=== PATIENT | male | born 1960 | race Caucasian/White ===

== ENCOUNTER 2021-03-31 11:48 | Outpatient (CLI) | payer BC, SELFPAY ==
[2021-03-31 16:20] LABS: INR 0.9; Prothrombin Time 12.5 Seconds (11.1-14.7)
[2021-03-31 16:21] LABS: Partial Thromboplastin Time 30.5 SECONDS (22.3-36.8)
== END 2021-03-31 11:49 | disposition home or self-care (01) ==
PROVIDERS: PCP Pediatrics; Visit Provider Urology
DX: N20.0 Calculus of kidney (principal); Z01.818 Encounter for other preprocedural examination
CPT/HCPCS: 36415; 85610; 85730; 87086

== ENCOUNTER 2021-04-07 00:36 | Day surgery (SDC) | payer BC, SELFPAY ==
--- NOTE | 2021-03-30 07:34 | P.HP_ITS ---
History of Present Illness History of Present Illness Consent: Risks, benefits, and alternatives have been discussed and questions answered. Patient agrees to proceed with procedure. Chief complaint: kidney stones, bph Narrative: Patrick Severino is a 60 year old male well known to me with a long history of urolithiasis. He was presented after having spontaneously passed several stones. CT imaging demonstrated a 7 mm right renal calculus and up to 7 small bladder calculi less than 1 cm. After discussion of options has elected for simultaneous right ESWL and cystoscopy with laser lithotripsy and extraction of bladder stones. He is aware the risk including, but not limited to, adverse cardiopulmonary events, persistent renal stones and potential for recurrent bladder stones. Review of Systems Cardiovascular: Cardiovascular: Denies chest pain, Denies lightheadedness, Denies palpitations and Denies dyspnea Respiratory: Respiratory: Denies dyspnea Gastrointestinal: Gastrointestinal: Denies diarrhea, Denies nausea and Denies vomiting Genitourinary: Genitourinary: Denies hematuria and Denies dysuria Endocrine: Endocrine: Denies palpitations Meds Home Medications and Allergies Allergies Allergy/AdvReac Type Severity Reaction Status Date / Time No Known Allergies Allergy Unverified 11/07/18 07:41 Exam Const: General: no acute distress Resp: Effort & Inspection: normal respiratory effort GI: Inspection: non-distended GI Palp: No abdominal tenderness and No Guarding due to palpation present (GI) Auscultation: normal bowel sounds Assessment and Plan Assessment and plan (1) Bladder stones: Code(s): N21.0 - Calculus in bladder Status: Acute (2) Right renal stone: Code(s): N20.0 - Calculus of kidney Status: Acute Assessment and Plan: * Right ESWL, cystoscopy with laser lithotripsy and bladder stone extraction
[2021-03-31 11:05] VITALS: BMI 30.9
--- NOTE | 2021-03-31 11:15 | PC.NURSE ---
Report to the Outpatient Waiting Room, entrance under the green pavilion located off [facility], at time 6:00 on date 04/07/21. OR Time: 7:30. - You will be asked a series of questions to screen for COVID 19 for your protection. - A mask is required within the hospital. - No visitors are allowed at this time. Preoperative COVID Testing Requirements: No COVID Test needed if: (proof is required; if not received patient will have Rapid Test prior to entry) - Patient has received COVID Vaccine at least 14 days prior to procedure date or - Patient has positive COVID test result within last 90 days of surgery date. COVID Test needed if above criteria is not met Patients may have clear liquids (water, carbonated beverages, clear teas, apple juice) until 3 hours prior to surgery (4:30) with a maximum of 20 ounces. - No food from midnight until time of surgery Take the following medications with a SIP of water the morning of surgery: ZOLOFT Medications to discontinue per physician: VITAMINS/SUPPLEMENTS Date to take last dose: 04/03/21 Please no make-up, nail citizen of [place], hairspray, perfume, deodorant, or body powder the day of surgery. No jewelry (including any body piercings) or valuables the day of surgery, leave them at home. Please take a shower or bath the night before, or the morning of, surgery with an antibacterial soap. Wear comfortable, loose fitting clothing. - Jewelry must be removed prior to entering the operating room. Rings and piercings that are not removed may be cut off. - The hospital will not accept responsibility for valuables. - Please leave all valuables, including medications, at home the day of surgery. If you are going home after surgery, a licensed mechanic welder truck driver must drive you home. - NO public transportation without another adult. - We recommend that an adult stay with you for 24 hours following discharge. - We also recommend that you do not drive, make important decision, drink alcoholic beverages, or take any drugs that were not prescribed by your health care provider for at least 24 hours after your discharge time. Follow any additional instructions given to you from your surgeon. Telephone instructions given to OWEN CASTELAN and asked if any additional questions and then verbalized understanding. Patient advised to call surgeon office or pre surgery nurse liaison [phone] if any additional questions.
--- NOTE | ~2021-04-07 | XR_ITS ---
EXAMINATION: XR abdomen/kub 1V DATE: 04/07/2021 06:06 INDICATION: Kidney stone. TECHNIQUE: A supine view of the abdomen on 2 radiographs was obtained. COMPARISON: CT abdomen and pelvis 11/08/2018, abdomen radiograph 11/07/2018 FINDINGS: There are no dilated loops of bowel. There is no visible urolithiasis. IMPRESSION: 1. No visible urolithiasis. Reviewed, dictated and finalized at location B. GRAPHY TECHNICIAN IMPRESSION: 1. No visible urolithiasis.
--- NOTE | 2021-04-07 06:31 | WPDHPUPDATE1 ---
History and Physical Update Update Date/Time: 04/07/21 06:31 History and Physical has been reviewed, including an updated exam of the patient. There are NO changes in the patient's condition. Risks, benefits, and alternatives have been discussed and questions answered. Patient agrees to proceed with procedure.
[2021-04-07] MEDS: LACTATED RINGERS 1,000 ML 30 ML IV CONT ×2 (06:46→08:43)
[2021-04-07 06:47] VITALS: BP 139/86; PULSE 98; RESP 16; TEMP 36.5; O2SAT 98
--- NOTE | 2021-04-07 06:57 | WPDANESEPPF ---
Anes - Initial Pre Proc Eval Procedure: Operation Date: 04/07/21 07:30 Proposed Procedures p Cystoscopy, Bladder Stone Extraction, - Levon Connolly MD s Right Extracorporeal Shock Wave Lithotripsy - Levon Connolly MD s Possible Holmium Laser Procedure - Levon Connolly MD Date/Time: 04/07/21 06:57 Surgeon: Levon Connolly MD Pre Op Diagnosis: kidney stones, bph Patient Data Age: 60 Gender: M Height: 1.88 m Weight: 109.3 kg Last Vital Signs Temp 36.5 C 04/07/21 06:47 Pulse 98 04/07/21 06:47 Resp 16 04/07/21 06:47 BP 139/86 04/07/21 06:47 Pulse Ox 98 04/07/21 06:47 Allergies Allergy/AdvReac Type Severity Reaction Status Date / Time No Known Allergies Allergy Unverified 04/07/21 06:14 Home Medications Medication Instructions Recorded Confirmed Type glycopyrrolate 2 mg PO DAILY 03/31/21 04/07/21 History multivitamin 1 tablet PO DAILY 03/31/21 04/07/21 History sertraline 100 mg PO DAILY 03/31/21 04/07/21 History Patient hx anesthesia problems: none Family hx anesthesia problems: none Results Review: All pre-operative results and documents have been reviewed as part of the pre-operative evaluation. [facility] Past Medical History Medical History (Updated 04/07/21 @ 06:57 by Mike Combs MD) Obesity Surgical History Surgical History (Updated 04/07/21 @ 06:57 by Mike Combs MD) H/O lithotripsy H/O vasectomy History of hydrocelectomy Social History Social History Smoking status: Never smoker Alcohol intake: never Substance use: never Substance use type: does not use Living arrangements: with family Spiritual care concerns: No Anes - Eval Final PreProcedure Day of Procedure 04/07/21 06:57 Patient weight: obese Heart: regular rate and rhythm Lungs: clear to auscultation Airway: Mallampati scale class II Neurological: alert and oriented Last oral intake: >/= 8 hours ASA classification: II Emergent: no Anesthetic plan: proceed Anesthesia type and monitoring: general LMA and standard monitoring Results Review: All pre-operative results and documents have been reviewed as part of the pre-operative evaluation. Informed Consent: The patient's anesthetic plan and its attendant risks and benefits were discussed with the patient/family/POA. Questions were solicited and answers provided to the satisfaction of the patient/family/POA.
[2021-04-07] MEDS: ceFAZolin 2 GM/D5W 50 ML 2 GM/50 ML BAG IVPB (07:23)
[2021-04-07] MEDS: LIDOCAINE HCL 2% JELLY 30 ML TUBE 1 APPLIC MUCOUS MEM (07:52)
--- NOTE | 2021-04-07 08:24 | W.PM.PROC2 ---
Procedure Note - Detailed Date of Procedure 04/07/21 Pre-op Diagnosis 1. 6 mm right kidney stones 2. Multiple bladder stones Post-op Diagnosis same Procedure Performed 1. Cystoscopy with bladder stone extraction 2. Right retrograde pyelography and right ureteroscopy 3. Right ESWL 4. Urethral dilatation Surgeon Levon Connolly MD Anesthesia general Description of Procedure Patient is brought to the operative suite where we 1st attempted to localize his right renal stone with the ESWL fluoroscopy unit after the uneventful induction of a general anesthetic. We could not visualize the 6 mm right renal calculus. I therefore positioned him in a dorsal lithotomy position. Cystoscopy revealed a bulbous urethral stricture which was dilated from 16-26 F with Redd sounds. His bladder mucosa was without hyperemia or neoplasm. There were 7 bladder stones each measuring approximately 1 cm. I was able to extract these intact with a 26 F resectoscope and loop. Then placed a 0.035 in glidewire to the right renal pelvis, dilated the distal ureter with an 8 F 10 F dilator and performed right retrograde pyelography and right ureteroscopy to localize his 6 mm right renal calculus in a lower pole calyx. With the aid of retrograde contrast injection treated that with the Dornier ESWL machine. We delivered 2500 shocks at a power setting of 4. Scopes and wires removed he was taken to the recovery room in good condition. Estimated Blood Loss 0 Drains No Packing No Pathology yes Complications No immediate complications Condition stable Disposition PACU
[2021-04-07] MEDS: KETOROLAC 15 MG/ML VIAL (*BKC) IV PUSH (08:38)
[2021-04-07 08:43] VITALS: BP 107/68; PULSE 77; RESP 14; TEMP 36.2; O2SAT 98
[2021-04-07 08:55] VITALS: BP 120/81; PULSE 89; RESP 13; O2SAT 100
[2021-04-07 09:10] VITALS: BP 117/80; PULSE 85; RESP 19; O2SAT 96
[2021-04-07 09:25] VITALS: BP 134/85; PULSE 80; RESP 16
[2021-04-07 09:50] VITALS: BP 128/85; PULSE 79; RESP 16
--- NOTE | 2021-04-07 09:55 | SUR.PHASEII ---
PATIENT ASKED TO HAVE FOLLOW-UP KUB XRAY AT [facility]. DR FREDERICK' OFFICE CALLED; THEY WILL SEND ORDER TO [facility].
== END 2021-04-07 09:56 | disposition home or self-care (01) ==
PROVIDERS: PCP Pediatrics; Visit Provider Urology
PROC: (CPT 52352; principal; 2021-04-07 07:30)
PROC: (CPT 50590; 2021-04-07 07:30)
DX: N20.0 Calculus of kidney (principal); N21.0 Calculus in bladder; N35.912 Unspecified bulbous urethral stricture, male; N40.0 Benign prostatic hyperplasia without lower urinary tract symptoms; E66.9 Obesity, unspecified; Z68.30 Body mass index [BMI] 30.0-30.9, adult
CPT/HCPCS: 50590; 52281; 74018; 82365; 88300; A9270; C1769; C1887; J0171; J0690; J1100; J1885; J2250; J2370; J2405; J2704; J3010; J7120; Q9966

== ENCOUNTER 2021-12-29 01:45 | Day surgery (SDC) | payer BC, SELFPAY ==
[2021-12-28 08:25] VITALS: BMI 30.8
--- NOTE | 2021-12-28 08:29 | PC.NURSE ---
Report to the Outpatient Waiting Room, entrance under the green pavilion located off [facility], at time 0600 on date 12/29/21. OR Time: 0730. Time changes happen often and if your time is changed the preop area will call you the afternoon before. - You and your visitor will be asked to self-screen and do not enter if you have any COVID symptoms. - Only one visitor and NO children visitors are allowed at this time. - The patient visitor is requested to leave or wait in car when not with patient due to restrictions. - A mask is required within the hospital. Patients may have clear liquids (water, carbonated beverages, clear teas, apple juice) until 3 hours prior to surgery with a maximum of 20 ounces. - No food from midnight until time of surgery Take the following medications with a SIP of water the morning of surgery: SERTRALINE, PAIN PILL IF NEEDED Medications to discontinue per physician: VITAMINS/SUPPLEMENTS Date to take last dose: NO MORE UNTIL AFTER SURGERY Please no make-up, nail wolof, hairspray, perfume, deodorant, or body powder the day of surgery. No jewelry (including any body piercings) or valuables the day of surgery, leave them at home. Please take a shower or bath the night before, or the morning of, surgery with an antibacterial soap. Wear comfortable, loose fitting clothing. - Jewelry must be removed prior to entering the operating room. Rings and piercings that are not removed may be cut off. - The hospital will not accept responsibility for valuables. - Please leave all valuables, including medications, at home the day of surgery. If you are going home after surgery, a licensed dump truck driver must drive you home. - NO public transportation without another adult. - We recommend that an adult stay with you for 24 hours following discharge. - We also recommend that you do not drive, make important decision, drink alcoholic beverages, or take any drugs that were not prescribed by your health care provider for at least 24 hours after your discharge time. Follow any additional instructions given to you from your surgeon. If you or anyone in your household have experienced Covid symptoms in the past week, please notify your surgeon or the nurse liaison at the phone number below for possible testing. Telephone instructions given to PT - OWEN CASTELAN and asked if any additional questions and then verbalized understanding. Patient advised to call surgeon office or pre surgery nurse liaison [phone] if any additional questions.
--- NOTE | 2021-12-28 09:17 | P.HP_ITS ---
History of Present Illness History of Present Illness Consent: Risks, benefits, and alternatives have been discussed and questions answered. Patient agrees to proceed with procedure. Chief complaint: right ureteral stone Narrative: Patrick Severino is a 61 year old male With a known history of recurrent urolithiasis who I saw recently where imaging demonstrated just small bilateral nonobstructing renal calculi. Just 2 days ago, however, he developed a severe right renal colic and imaging at [facility] in [facility] shows a 6-8 mm obstructing right proximal ureteral stone. After discussion of options he has elected to proceed with right ESWL. He prefers not to have a stent placed. He is aware the risk of this including, but not limited to, adverse cardiopulmonary events, renal injury, perinephric hematoma and residual fragments that could cause pain or require additional procedures. Review of Systems Cardiovascular: Cardiovascular: Denies chest pain, Denies lightheadedness, Denies palpitations and Denies dyspnea Respiratory: Respiratory: Denies dyspnea Gastrointestinal: Gastrointestinal: Denies diarrhea, Denies nausea and Denies vomiting Genitourinary: Genitourinary: Denies hematuria and Denies dysuria Endocrine: Endocrine: Denies palpitations [facility] Past Medical History Medical History (Updated 12/28/21 @ 09:19 by Levon Connolly MD) Obesity Surgical History Surgical History (Updated 04/07/21 @ 06:57 by Mike Combs MD) H/O lithotripsy H/O vasectomy History of hydrocelectomy Social History Social History Smoking status: Never smoker Alcohol intake: never Substance use: never Substance use type: does not use Living arrangements: with family Spiritual care concerns: No Meds Home Medications and Allergies Home Medications Medication Instructions Recorded Confirmed Type glycopyrrolate 2 mg tablet 2 mg PO DAILY 03/31/21 12/28/21 History sertraline 100 mg tablet 100 mg PO DAILY 03/31/21 12/28/21 History calcium carbonate 500 mg calcium 500 mg PO DAILY 12/28/21 12/28/21 History (1,250 mg) tablet loratadine 10 mg tablet (Claritin) 10 mg PO DAILY 12/28/21 12/28/21 History omega 5-xba-kpk-fish oil 1,000 mg 1 cap PO DAILY 12/28/21 12/28/21 History (120 mg-180 mg) capsule (Fish Oil) ondansetron HCl 4 mg tablet 4 mg PO PRN PRN Nausea 12/28/21 12/28/21 History oxycodone-acetaminophen 5 mg-325 1 tablet PO PRN PRN Pain 12/28/21 12/28/21 History mg tablet Allergies Allergy/AdvReac Type Severity Reaction Status Date / Time No Known Allergies Allergy Unverified 12/28/21 08:23 Exam Const: General: no acute distress Resp: Effort & Inspection: normal respiratory effort GI: Inspection: non-distended GI Palp: No abdominal tenderness and No Guarding due to palpation present (GI) Auscultation: normal bowel sounds Assessment and Plan Assessment and plan (1) Right ureteral stone: Code(s): N20.1 - Calculus of ureter Status: Acute
[2021-12-29] VITALS (7 sets, daily range): BP systolic 90–132; BP diastolic 65–86; PULSE 66–91; RESP 12–17; TEMP 36.3–36.6; O2SAT 95–97
--- NOTE | ~2021-12-29 | XR_ITS ---
EXAMINATION: XR abdomen/kub 1V DATE: 12/29/2021 06:04 INDICATION: Kidney stone. TECHNIQUE: A supine view of the abdomen on 2 radiographs was obtained. COMPARISON: CT abdomen and pelvis 11/08/2018, radiographs 04/07/2021 FINDINGS: There are no dilated loops of bowel. There is no visible urolithiasis. IMPRESSION: 1. No visible urolithiasis. Reviewed, dictated and finalized at location D. IMPRESSION: 1. No visible urolithiasis.
[2021-12-29] MEDS: LACTATED RINGERS 1,000 ML 30 ML IV CONT (06:30)
[2021-12-29 06:50] LABS: INR 1.1; Prothrombin Time 13.6 Seconds (11.1-14.7)
[2021-12-29 06:51] LABS: Partial Thromboplastin Time 36.8 SECONDS (22.3-36.8)
--- NOTE | 2021-12-29 06:55 | WPDHPUPDATE1 ---
History and Physical Update Update Date/Time: 12/29/21 06:55 History and Physical has been reviewed, including an updated exam of the patient. There are NO changes in the patient's condition. Risks, benefits, and alternatives have been discussed and questions answered. Patient agrees to proceed with procedure.
--- NOTE | 2021-12-29 07:02 | P.PNAN_ITS ---
Anes - Initial Pre Proc Eval Procedure: Operation Date: 12/29/21 07:30 Proposed Procedures p Right Ureteral Extracorporeal Shock Wave Lithotripsy - Levon Connolly MD Date/Time: 12/29/21 07:02 Surgeon: Levon Connolly MD Pre Op Diagnosis: right ureteral stone Patient Data Age: 61 Gender: M Height: 1.88 m Weight: 108.86 kg Allergies Allergy/AdvReac Type Severity Reaction Status Date / Time No Known Allergies Allergy Unverified 12/28/21 08:23 Home Medications Medication Instructions Recorded Confirmed Type glycopyrrolate 2 mg tablet 2 mg PO DAILY 03/31/21 12/28/21 History sertraline 100 mg tablet 100 mg PO DAILY 03/31/21 12/28/21 History calcium carbonate 500 mg calcium 500 mg PO DAILY 12/28/21 12/28/21 History (1,250 mg) tablet loratadine 10 mg tablet (Claritin) 10 mg PO DAILY 12/28/21 12/28/21 History omega 3-enm-xff-fish oil 1,000 mg 1 cap PO DAILY 12/28/21 12/28/21 History (120 mg-180 mg) capsule (Fish Oil) ondansetron HCl 4 mg tablet 4 mg PO PRN PRN Nausea 12/28/21 12/28/21 History oxycodone-acetaminophen 5 mg-325 1 tablet PO PRN PRN Pain 12/28/21 12/28/21 History mg tablet Laboratory Tests 12/29/21 06:25 PT 13.6 Seconds Seconds (11.1-14.7) INR 1.1 APTT 36.8 SECONDS SECONDS (22.3-36.8) Patient hx anesthesia problems: none Family hx anesthesia problems: none Results Review: All pre-operative results and documents have been reviewed as part of the pre- operative evaluation. [facility] Past Medical History Medical History Anxiety Obesity Surgical History Surgical History H/O lithotripsy H/O vasectomy History of hydrocelectomy Social History Social History Smoking status: Never smoker Alcohol intake: never Substance use: never Substance use type: does not use Living arrangements: with family Spiritual care concerns: No Anes - Eval Final PreProcedure Day of Procedure 12/29/21 07:02 Patient weight: obese Heart: regular rate and rhythm Lungs: clear to auscultation Airway: Mallampati scale class II Neurological: alert and oriented Last oral intake: >/= 8 hours ASA classification: II Emergent: no Anesthetic plan: proceed Anesthesia type and monitoring: general LMA and standard monitoring Results Review: All pre-operative results and documents have been reviewed as part of the pre- operative evaluation. Informed Consent: The patient's anesthetic plan and its attendant risks and benefits were discussed with the patient/family/POA. Questions were solicited and answers provided to the satisfaction of the patient/family/POA.
[2021-12-29] MEDS: ceFAZolin 2 GM/D5W 50 ML 2 GM/50 ML BAG IVPB (07:26)
--- NOTE | 2021-12-29 07:51 | W.PM.PROC2 ---
Procedure Note - Detailed Date of Procedure 12/29/21 Pre-op Diagnosis Right ureteral stone Post-op Diagnosis Same Procedure Performed Right ureteral ESWL Surgeon Levon Connolly MD Description of Procedure The patient was brought to the operative suite where he was placed in the supine position on the Dornier lithotripsy table. The focal point of the lithotripter was placed at a 10x6mm right mid-ureteral calculus. A total of 3000 shocks were delivered at a power setting of 5. There appeared to be good fragmentation of the stone. The patient tolerated the procedure well and was taken to the recovery room in good condition. Drains No Packing No Pathology None sent Condition Stable Disposition PACU
[2021-12-29] MEDS: KETOROLAC 30 MG/ML VIAL (*BKC) IV PUSH (08:10)
== END 2021-12-29 09:45 | disposition home or self-care (01) ==
PROVIDERS: PCP Pediatrics; Visit Provider Urology
PROC: (CPT 50590; principal; 2021-12-29 07:30)
DX: N20.1 Calculus of ureter (principal); E66.9 Obesity, unspecified; Z68.31 Body mass index [BMI] 31.0-31.9, adult
CPT/HCPCS: 50590; 36415; 74018; 85610; 85730; J0690; J1885; J2250; J2405; J2704; J3010; J7120

== ENCOUNTER 2022-01-12 14:23 | Outpatient (CLI) | payer BC, SELFPAY ==
--- NOTE | ~2022-01-12 | XR_ITS ---
XR abdomen/kub 1V 01/12/2022 14:47 INDICATION: Bilateral renal stones TECHNIQUE: KUB COMPARISON: 12/29/2021 FINDINGS: Bowel gas pattern is normal. Moderate colonic fecal loading. There is no evidence of free a ir, mass, organomegaly, ascites or obstruction. No abnormal calculi are seen. The bones appear inta ct. IMPRESSION: 1: No acute abdominal abnormality identified. Reviewed, dictated and finalized at location A.
== END 2022-01-12 14:24 | disposition home or self-care (01) ==
LOC: ANHIMG 14:25
PROVIDERS: PCP Pediatrics; Visit Provider Urology
DX: N20.0 Calculus of kidney (principal)
CPT/HCPCS: 74018

== ENCOUNTER 2024-03-12 00:37 | Day surgery (SDC) | payer BC, SELFPAY ==
[2024-03-12] VITALS (8 sets, daily range): BP systolic 121–142; BP diastolic 77–88; PULSE 67–77; RESP 14–18; TEMP 36.1; O2SAT 94–100; BMI 30.6
--- NOTE | ~2024-03-12 | XR_ITS ---
EXAMINATION: XR fluoroscopy no charge DATE: 03/12/2024 14:55 INDICATION: Right ureteral stone. TECHNIQUE: 4 intraoperative fluoroscopic views of the abdomen and pelvis were obtained. I was not pre sent. Fluoroscopy exposure time was 69 seconds. COMPARISON: None. FINDINGS: There is a wire in the right ureter. There is no visible urolithiasis. IMPRESSION: 1. No visible urolithiasis. Reviewed, dictated and finalized at location A. [facility] IMPRESSION: 1. No visible urolithiasis.
--- NOTE | 2024-03-12 06:08 | WPDHPUPDATE1 ---
History and Physical Update Update Date/Time: 03/12/24 06:08 History and Physical has been reviewed, including an updated exam of the patient. There are NO changes in the patient's condition. Risks, benefits, and alternatives have been discussed and questions answered. Patient agrees to proceed with procedure.
--- NOTE | 2024-03-12 08:37 | PC.NURSE ---
Report to the Outpatient Waiting Room, entrance under the green pavilion located off [facility], at time _230pm_ on date _[id number]_. Planned Procedure Time: _430pm_.? Time changes happen often and if your time is changed the preop area will call you the afternoon before. - You and your visitor will be asked to self-screen and do not enter if you have any COVID symptoms. Please call surgeon if you need to reschedule. - A mask is optional within the hospital at this time. Patients may have clear liquids (water, carbonated beverages, clear teas, apple juice) until 3 hours prior to surgery with a maximum of 20 ounces. - No food from midnight until time of surgery and no smoking. This includes no chewing gum, candy or mints. Take only the following medications with a SIP of water on the morning of surgery: ____Sertraline and if needed Zofran or Oxycodone DO NOT STOP ANY OF YOUR OTHER PRESCRIPTION MEDICATIONS PRIOR TO SURGERY EXCEPT THE FOLLOWING Medications to discontinue per physician ___Hold all other medications until after surgery.___ Date to take last dose Please no make-up, nail kazakh, hairspray, perfume, deodorant, or body powder the day of surgery.? No jewelry (including any body piercings) or valuables the day of surgery, leave them at home.? Please take a shower or bath the night before, or the morning of, surgery with an antibacterial soap.? Wear comfortable, loose fitting clothing.? - Jewelry must be removed prior to entering the operating room.? Rings and piercings that are not removed may be cut off. - The hospital will not accept responsibility for valuables.? - Please leave all valuables, including medications, at home the day of surgery. If you are going home after surgery, a licensed route sales driver must drive you home.? - NO public transportation without another adult if you receive anesthesia. - We recommend that an adult stay with you for 24 hours following discharge. - We also recommend that you do not drive, make important decision, drink alcoholic beverages, or take any drugs that were not prescribed by your health care provider for at least 24 hours after your discharge time. Follow any additional instructions given to you from your surgeon. Telephone instructions given to _Eliazary__and asked if any additional questions and then verbalized understanding. Patient advised to call surgeon office or pre surgery nurse liaison [phone] if any additional questions.
--- NOTE | 2024-03-12 12:28 | ECG_ITS ---
Test Date: 2024-03-12 12:46:15 Measurements Intervals [place] Rate: 72 P: 40 OR: 171 QRS: 20 QRSD: 94 T: 44 QT: 378 QTc: 416 Interpretive Statements SINUS RHYTHM POSSIBLE ANTERIOR MYOCARDIAL INFARCTION , OF INDETERMINATE AGE [30 ms Q WAVE IN V3/V4, OR R < 0.2 mV IN V4] No previous ECG available for comparison Electronically Signed On 03-13-2024 11:56:02 [employer] by Chapis England M.D.
[2024-03-12] MEDS: LACTATED RINGERS 1,000 ML 30 ML IV CONT (13:00)
--- NOTE | 2024-03-12 14:04 | WPDANESEPPF ---
Anes - Initial Pre Proc Eval Procedure: Operation Date: 03/12/24 16:30 Proposed Procedures p Cystoscopy, Right Ureteroscopy, Right Retrograde Pyelogram, Right Stone Extraction, Right Stent Placement, Possible Holmium Laser - Levon Connolly MD Date/Time: 03/12/24 14:04 Surgeon: Levon Connolly MD Pre Op Diagnosis: right kidney stones, ureteral Patient Data Age: 63 Gender: M Height: 1.88 m Weight: 108.2 kg Allergies Allergy/AdvReac Type Severity Reaction Status Date / Time No Known Allergies Allergy Verified 03/12/24 13:47 Home Medications ?Medication ?Instructions ?Recorded ?Confirmed ?Type glycopyrrolate 2 mg tablet 2 mg PO DAILY 03/31/21 03/12/24 History sertraline 100 mg tablet 100 mg PO DAILY 03/31/21 03/12/24 History calcium carbonate 500 mg PO DAILY 12/28/21 03/12/24 History loratadine 10 mg tablet (Claritin) 10 mg PO DAILY 12/28/21 03/12/24 History omega 6-wgj-hpf-fish oil 1,000 mg 1 cap PO DAILY 12/28/21 03/12/24 History (120 mg-180 mg) capsule (Fish Oil) ondansetron HCl 4 mg tablet 4 mg PO PRN PRN Nausea 12/28/21 03/12/24 History ketorolac 10 mg tablet 10 mg PO Q6H 5 days #20 tabs 12/29/21 03/12/24 Rx oxycodone-acetaminophen 5 mg-325 1 - 2 tablet PO Q6H PRN pain #24 12/29/21 03/12/24 Rx mg tablet tabs ascorbic acid (vitamin C) 500 mg 500 mg PO DAILY 03/12/24 03/12/24 History tablet (C-500) docusate sodium 100 mg capsule 100 mg PO DAILY PRN constipation 03/12/24 03/12/24 History (Dulcolax Stool Softener (docusate)) magnesium carbonate 250 mg capsule 400 mg PO DAILY 03/12/24 03/12/24 History multivitamin (Daily Multi-Vitamin 1 tablet PO DAILY 03/12/24 03/12/24 History tablet) rosuvastatin 10 mg tablet 10 mg PO DAILY 03/12/24 03/12/24 History tamsulosin 0.4 mg capsule 0.4 mg PO HS 03/12/24 03/12/24 History Patient hx anesthesia problems: none Family hx anesthesia problems: none Results Review: All pre-operative results and documents have been reviewed as part of the pre-operative evaluation. [facility] Past Medical History Medical History Anxiety Obesity Surgical History Surgical History H/O lithotripsy History of hydrocelectomy H/O vasectomy Social History Social History Smoking status: Never smoker Alcohol intake: never Substance use: never Substance use type: does not use Living arrangements: with family Spiritual care concerns: No Anes - Eval Final PreProcedure Day of Procedure 03/12/24 14:04 Patient weight: obese Heart: regular rate and rhythm Lungs: clear to auscultation Airway: Mallampati scale class II Neurological: alert and oriented Last oral intake: >/= 8 hours ASA classification: II Emergent: no Anesthetic plan: proceed Anesthesia type and monitoring: general LMA and standard monitoring Results Review: All pre-operative results and documents have been reviewed as part of the pre-operative evaluation. Informed Consent: The patient's anesthetic plan and its attendant risks and benefits were discussed with the patient/family/POA. Questions were solicited and answers provided to the satisfaction of the patient/family/POA.
[2024-03-12] MEDS: ceFAZolin 2 GM/D5W 50 ML 2 GM/50 ML BAG IVPB (14:11)
[2024-03-12] MEDS: LIDOCAINE 2% GEL UROJET 10 ML PKG MUCOUS MEM (14:22)
--- NOTE | 2024-03-12 15:09 | W.PM.PROC2 ---
Procedure Note - Detailed Date of Procedure 03/12/24 Pre-op Diagnosis Right kidney stones, ureteral Post-op Diagnosis Same Procedure Performed Cystoscopy, right ureteroscopy with laser lithotripsy and stone extraction Surgeon Levon Connolly MD Anesthesia General Description of Procedure Patient is brought to the operative suite was prepped draped in routine sterile fashion while in dorsal lithotomy position after the uneventful induction of a general LMA anesthetic. Cystoscopy was undertaken with a 19 F rigid cystoscope. 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 There is no significant median lobe enlargement. Bladder mucosa is normal. There are couple tiny bladder stones. There was no intravesical foreign body or neoplasm. A 0.035 in glidewire was advanced into his right ureteral orifice under cystoscopy. His right mid ureteral stone precludes easy passage of the wire. I dilated the distal ureter with an 8 F to dilator. Was unable to perform flexible ureteroscopy. The stone washed into a midpole calyx where I fractured with a 200 micron Earl laser fiber into tiny particles less than 3 mm. The largest particle was removed with ease of 1.9 F disposable stone basket. Because of patient's intolerance of stents in the past I opted not to place ureteral stent. Scopes wires removed he was taken recovery room in good condition Drains No Packing No Pathology Yes Complications No immediate complications Condition Stable Disposition PACU
[2024-03-12] MEDS: oxyCODONE HCL (*CRX) 5 MG TAB IR PO (16:24)
== END 2024-03-12 16:45 | disposition home or self-care (01) ==
PROVIDERS: PCP Pediatrics; Visit Provider Urology
PROC: (CPT 52352; principal; 2024-03-12 16:30)
DX: N20.1 Calculus of ureter (principal); J45.909 Unspecified asthma, uncomplicated; F41.9 Anxiety disorder, unspecified; E66.9 Obesity, unspecified; Z68.30 Body mass index [BMI] 30.0-30.9, adult; Z79.891 Long term (current) use of opiate analgesic; Z98.890 Other specified postprocedural states; N40.1 Benign prostatic hyperplasia with lower urinary tract symptoms
CPT/HCPCS: 52353; 82365; 88300; 93005; 99199; A9270; C1769; J0690; J1100; J2405; J2704; J3010; J7120